=== PATIENT | female | born 1995 | race Two or more races ===

== ENCOUNTER 2022-07-29 06:44 | Emergency (ER) | payer MEDICAID ==
[~2022-07-29] VITALS: Ht 160 cm; Wt 111.3 kg
[2022-07-29 07:41] VITALS: BP 155/79
[2022-07-29 07:47] LABS: Urine Bacteria NONE SEEN /hpf (None Seen); Urine Blood TRACE /uL (Negative); Urine Specific Gravity 1.024 (1.001-1.035); Urine WBC 4 /hpf (0 - 5)
[2022-07-29 07:52] LABS: Basophils # (auto) 0 10 ^3/uL (0-0.2); Basophils % (auto) 0.3 % (0.0-2.0); Eosinophils # (auto) 0.3 10 ^3/uL (0-0.8); Eosinophils % (auto) 3.1 % (0.0-7.0); Hematocrit 43.6 % (36.0-46.0); Hemoglobin 14.4 g/dL (12.2-16.2); Lymphocytes % (auto) 27.5 % (10.0-50.0); Mean Corpuscular Hemoglobin 28.1 pg (28.0-32.0); Mean Corpuscular Hgb Conc. 33.1 g/dL (32.0-36.0); Mean Corpuscular Volume 84.7 fL (80.0-100.0); Monocytes # (auto) 0.5 10 ^3/uL (0-1.3); Monocytes % (auto) 4.4 % (0.0-12.0); Neutrophils # (auto) 7.1 10 ^3/uL (1.6-8.6); Neutrophils % (auto) 64.7 % (37.0-80.0); Nucleated Red Blood Cells % 0.4 %; Red Blood Cells 5.15 10^6/uL (4.0-5.20); Red Cell Distribution Width 14.6 % (11.8-14.3); White Blood Cell 11.1 10^3/uL (4.4-10.8)
[2022-07-29] MEDS ORDERED: KETOROLAC TROMETH 60MG/2ML VIAL IM ONE (08:00)
[2022-07-29 08:06] LABS: Alcohol, Urine < 3.0 mg/dL (0-10); Amphetamine Screen, Urine NEGATIVE (NEGATIVE); Barbiturate Scree,Urine NEGATIVE (NEGATIVE); Benzodiazephine Screen, Urine NEGATIVE (NEGATIVE); Cannabinoid Screen, Urine POSITIVE (NEGATIVE); Cocaine Screen, Urine NEGATIVE (NEGATIVE); Opiate Scree,Urine NEGATIVE (NEGATIVE); Phencyclidine Screen, Urine NEGATIVE (NEGATIVE)
[2022-07-29 08:10] LABS: Albumin 3.7 g/dL (3.4-5.0); BUN/Creatinine Ratio 30.9; Calcium 8.8 mg/dL (8.5-10.1); Potassium 3.7 mmol/L (3.5-5.1)
[2022-07-29 08:13] LABS: Bilirubin, Total 0.2 mg/dL (0.2-1.0); Total Protein 8.3 g/dL (6.4-8.2)
[2022-07-29] MEDS ORDERED: IBUP800T27 PO (09:04)
[2022-07-29] MEDS ORDERED: BACDST PO (09:04)
== END 2022-07-29 09:11 | disposition home or self-care (01) ==
LOC: ER 06:44
DX: K80.20 Calculus of gallbladder without cholecystitis without obstruction (principal); K76.0 Fatty (change of) liver, not elsewhere classified; N39.0 Urinary tract infection, site not specified; F17.210 Nicotine dependence, cigarettes, uncomplicated
CPT/HCPCS: 36415; 76705; 80053; 80307; 81001; 82150; 83690; 85025; 96372; 99284; J1885

== ENCOUNTER 2022-09-01 04:18 | Inpatient (IN) | payer MEDICAID ==
[~2022-09-01] VITALS: Ht 160 cm; Wt 107.7 kg
[~2022-09-01 04:18] MED LIST: BACDST PO; IBUP800T27 PO
[2022-09-01 05:04] LABS: Basophils # (auto) 0 10 ^3/uL (0-0.2); Basophils % (auto) 0.3 % (0.0-2.0); Eosinophils # (auto) 0.1 10 ^3/uL (0-0.8); Eosinophils % (auto) 1.1 % (0.0-7.0); Hematocrit 42.8 % (36.0-46.0); Hemoglobin 14.1 g/dL (12.2-16.2); Lymphocytes % (auto) 23.1 % (10.0-50.0); Mean Corpuscular Hemoglobin 28.3 pg (28.0-32.0); Mean Corpuscular Hgb Conc. 32.8 g/dL (32.0-36.0); Mean Corpuscular Volume 86.1 fL (80.0-100.0); Monocytes # (auto) 0.4 10 ^3/uL (0-1.3); Monocytes % (auto) 3.1 % (0.0-12.0); Neutrophils # (auto) 9.4 10 ^3/uL (1.6-8.6); Neutrophils % (auto) 72.4 % (37.0-80.0); Red Blood Cells 4.97 10^6/uL (4.0-5.20); Red Cell Distribution Width 14.2 % (11.8-14.3); White Blood Cell 12.9 10^3/uL (4.4-10.8)
[2022-09-01 05:12] LABS: Urine Bacteria NONE SEEN /hpf (None Seen); Urine Blood Negative /uL (Negative); Urine Mucus FEW (None Seen); Urine Specific Gravity 1.028 (1.001-1.035); Urine WBC 4 /hpf (0 - 5)
[2022-09-01 05:24] LABS: Potassium 3.6 mmol/L (3.5-5.1)
[2022-09-01 05:30] LABS: Albumin 3.5 g/dL (3.4-5.0); Bilirubin, Total 0.6 mg/dL (0.2-1.0); Total Protein 7.8 g/dL (6.4-8.2)
[2022-09-01] MEDS ORDERED: KETOROLAC TROMETH 30 MG/ML 1ML VIAL IM ONE (09:15)
[2022-09-01] MEDS ORDERED: metroNIDAZOLE 500MG/100ML 100 ML IV ONE (13:00)
[2022-09-01] MEDS ORDERED: HYDROcodone-ACET 5/325MG TAB PO ONE (13:00)
[2022-09-01] MEDS ORDERED: cefTRIAXone 1GM/50ML D5W 50 ML IV ONE (13:00)
[2022-09-01] MEDS ORDERED: ONDANSETRON HCL 4 MG/2 ML VIAL IV PRN (16:45)
[2022-09-01 19:05] VITALS: BP 114/73
[2022-09-01 20:00] VITALS: BP 114/73
[2022-09-01 22:00] VITALS: BP 114/73
[2022-09-01] MEDS: SODIUM CHLORIDE 0.9% 1,000 ML IV SCH (22:07)
[2022-09-01] MEDS: metroNIDAZOLE 500MG/100ML 100 ML IV SCH (22:07)
[2022-09-01] MEDS: TAMSULOSIN HYDROCHLORIDE 0.4 MG CAP PO SCH (22:20)
[2022-09-02] MEDS: SODIUM CHLORIDE 0.9% 1,000 ML IV SCH (01:05)
[2022-09-02 05:00] VITALS: BP 106/60
[2022-09-02] MEDS: metroNIDAZOLE 500MG/100ML 100 ML IV SCH ×3 (05:51→21:22)
[2022-09-02 06:39] LABS: Basophils # (auto) 0.1 10 ^3/uL (0-0.2); Basophils % (auto) 0.7 % (0.0-2.0); Eosinophils # (auto) 0.4 10 ^3/uL (0-0.8); Eosinophils % (auto) 6.1 % (0.0-7.0); Hematocrit 42.2 % (36.0-46.0); Hemoglobin 13.8 g/dL (12.2-16.2); Lymphocytes # (auto) 1.6 10 ^3/uL (0.4-5.4); Lymphocytes % (auto) 22.3 % (10.0-50.0); Mean Corpuscular Hemoglobin 28.4 pg (28.0-32.0); Mean Corpuscular Hgb Conc. 32.8 g/dL (32.0-36.0); Mean Corpuscular Volume 86.6 fL (80.0-100.0); Monocytes # (auto) 0.3 10 ^3/uL (0-1.3); Monocytes % (auto) 3.6 % (0.0-12.0); Neutrophils # (auto) 4.8 10 ^3/uL (1.6-8.6); Neutrophils % (auto) 67.3 % (37.0-80.0); Nucleated Red Blood Cells % 0.2 %; Red Blood Cells 4.87 10^6/uL (4.0-5.20); Red Cell Distribution Width 14.1 % (11.8-14.3); White Blood Cell 7.1 10^3/uL (4.4-10.8)
[2022-09-02 06:47] LABS: Chloride 110 mmol/L (98-107); Potassium 3.3 mmol/L (3.5-5.1); Sodium 136 mmol/L (136-145)
[2022-09-02 06:54] LABS: Alanine Aminotransferase 460 U/L (13-56); Albumin 3.1 g/dL (3.4-5.0); Alkaline Phosphatase 171 U/L (45-117); Anion Gap 7 (5-15); Aspartate Aminotransferase 285 U/L (15-37); Bilirubin, Total 2.3 mg/dL (0.2-1.0); Blood Urea Nitrogen 15 mg/dL (7-18); Calcium 8.7 mg/dL (8.5-10.1); Carbon Dioxide 19 mmol/L (21-32); GFR African American 153 mL/min; GFR Non-African American 127 mL/min; Glucose 108 mg/dL (74-106); Total Protein 7.4 g/dL (6.4-8.2)
[2022-09-02 09:00] VITALS: BP 103/69
[2022-09-02 09:50] LABS: Amylase 35 U/L (25-115); Lipase 150 U/L (73-393)
[2022-09-02] MEDS: SOD CHL 0.9%/ KCL 40MEQ 1,000 ML IV SCH ×2 (09:57→18:10)
[2022-09-02] MEDS: cefTRIAXone 1GM/50ML D5W 50 ML IV SCH (09:57)
[2022-09-02] MEDS: PANTOPRAZOLE 40 MG/10 ML VIAL INJ IV SCH (09:58)
[2022-09-02] MEDS: ENOXAPARIN SOD 40 MG/0.4 ML SYRINGE SC SCH (09:58)
[2022-09-02 12:36] VITALS: BP 138/78
[2022-09-02 17:00] VITALS: BP 113/68
[2022-09-02] MEDS: TAMSULOSIN HYDROCHLORIDE 0.4 MG CAP PO SCH (18:11)
[2022-09-02 20:00] VITALS: BP 121/60
[2022-09-02 22:00] VITALS: BP 121/60
[2022-09-03] MEDS: SOD CHL 0.9%/ KCL 40MEQ 1,000 ML IV SCH ×3 (02:10→18:50)
[2022-09-03 05:00] VITALS: BP 117/69
[2022-09-03] MEDS: metroNIDAZOLE 500MG/100ML 100 ML IV SCH ×3 (05:18→23:10)
[2022-09-03 06:06] LABS: Basophils # (auto) 0 10 ^3/uL (0-0.2); Basophils % (auto) 0.6 % (0.0-2.0); Eosinophils # (auto) 0.3 10 ^3/uL (0-0.8); Eosinophils % (auto) 3.9 % (0.0-7.0); Hematocrit 39.8 % (36.0-46.0); Hemoglobin 13.1 g/dL (12.2-16.2); Lymphocytes # (auto) 1.9 10 ^3/uL (0.4-5.4); Lymphocytes % (auto) 25.7 % (10.0-50.0); Mean Corpuscular Hemoglobin 28.5 pg (28.0-32.0); Mean Corpuscular Volume 86.4 fL (80.0-100.0); Monocytes # (auto) 0.3 10 ^3/uL (0-1.3); Monocytes % (auto) 4.8 % (0.0-12.0); Neutrophils # (auto) 4.8 10 ^3/uL (1.6-8.6); Nucleated Red Blood Cells % 0.2 %; Red Cell Distribution Width 14.2 % (11.8-14.3); White Blood Cell 7.3 10^3/uL (4.4-10.8)
[2022-09-03 06:22] LABS: Potassium 3.9 mmol/L (3.5-5.1)
[2022-09-03 06:32] LABS: Albumin 3.3 g/dL (3.4-5.0); BUN/Creatinine Ratio 21.3 (10.0-20.0); Bilirubin, Total 2.5 mg/dL (0.2-1.0); Calcium 9.1 mg/dL (8.5-10.1); Total Protein 7.2 g/dL (6.4-8.2)
[2022-09-03 08:10] VITALS: BP 118/56
[2022-09-03 09:00] VITALS: BP 118/56
[2022-09-03] MEDS: cefTRIAXone 1GM/50ML D5W 50 ML IV SCH (09:31)
[2022-09-03] MEDS: ENOXAPARIN SOD 40 MG/0.4 ML SYRINGE SC SCH (10:34)
[2022-09-03] MEDS: PANTOPRAZOLE 40 MG/10 ML VIAL INJ IV SCH (10:34)
[2022-09-03 13:00] VITALS: BP 127/67
[2022-09-03 17:27] VITALS: BP 114/69
[2022-09-03] MEDS: TAMSULOSIN HYDROCHLORIDE 0.4 MG CAP PO SCH (17:44)
[2022-09-03 22:00] VITALS: BP 120/81
[2022-09-04] VITALS (7 sets, daily range): BP systolic 107–118; BP diastolic 66–75
[2022-09-04 05:46] LABS: Basophils # (auto) 0 10 ^3/uL (0-0.2); Basophils % (auto) 0.3 % (0.0-2.0); Eosinophils # (auto) 0.3 10 ^3/uL (0-0.8); Eosinophils % (auto) 3.1 % (0.0-7.0); Hematocrit 40.3 % (36.0-46.0); Hemoglobin 13.4 g/dL (12.2-16.2); Lymphocytes % (auto) 22.6 % (10.0-50.0); Mean Corpuscular Hemoglobin 28.8 pg (28.0-32.0); Mean Corpuscular Hgb Conc. 33.2 g/dL (32.0-36.0); Mean Corpuscular Volume 86.6 fL (80.0-100.0); Monocytes # (auto) 0.7 10 ^3/uL (0-1.3); Monocytes % (auto) 7.9 % (0.0-12.0); Neutrophils % (auto) 66.1 % (37.0-80.0); Nucleated Red Blood Cells % 0.3 %; Red Blood Cells 4.65 10^6/uL (4.0-5.20); Red Cell Distribution Width 14.1 % (11.8-14.3); White Blood Cell 9.1 10^3/uL (4.4-10.8)
[2022-09-04 06:26] LABS: Calcium 8.9 mg/dL (8.5-10.1); Potassium 4.5 mmol/L (3.5-5.1)
[2022-09-04 06:31] LABS: Albumin 3.1 g/dL (3.4-5.0); BUN/Creatinine Ratio 18.9 (10.0-20.0); Total Protein 6.7 g/dL (6.4-8.2)
[2022-09-04] MEDS: metroNIDAZOLE 500MG/100ML 100 ML IV SCH ×3 (06:39→21:18)
[2022-09-04] MEDS: SOD CHL 0.9%/ KCL 40MEQ 1,000 ML IV SCH ×3 (06:39→19:50)
[2022-09-04] MEDS: cefTRIAXone 1GM/50ML D5W 50 ML IV SCH (08:37)
[2022-09-04] MEDS: MORPHINE SULFATE INJ 2 MG/ml SYRG IV PRN ×2 (09:22→13:27)
[2022-09-04] MEDS: PANTOPRAZOLE 40 MG/10 ML VIAL INJ IV SCH (10:25)
[2022-09-04] MEDS: ENOXAPARIN SOD 40 MG/0.4 ML SYRINGE SC SCH (10:25)
[2022-09-04 12:54] LABS: Albumin 3.1 g/dL (3.4-5.0); Calcium 8.7 mg/dL (8.5-10.1)
[2022-09-04 12:57] LABS: BUN/Creatinine Ratio 13.6 (10.0-20.0); Bilirubin, Total 4.5 mg/dL (0.2-1.0); Total Protein 7.5 g/dL (6.4-8.2)
[2022-09-04] MEDS: HYDROmorphone HCL 2 MG/ML VL/or syr IV PRN ×2 (14:25→21:15)
[2022-09-04] MEDS: TAMSULOSIN HYDROCHLORIDE 0.4 MG CAP PO SCH (18:26)
[2022-09-05] MEDS: SOD CHL 0.9%/ KCL 40MEQ 1,000 ML IV SCH ×2 (01:05→12:48)
[2022-09-05 05:00] VITALS: BP 110/64
[2022-09-05] MEDS: metroNIDAZOLE 500MG/100ML 100 ML IV SCH ×3 (05:49→21:02)
[2022-09-05 06:41] LABS: Basophils # (auto) 0 10 ^3/uL (0-0.2); Basophils % (auto) 0.3 % (0.0-2.0); Eosinophils # (auto) 0.1 10 ^3/uL (0-0.8); Eosinophils % (auto) 1.4 % (0.0-7.0); Hematocrit 40.9 % (36.0-46.0); Hemoglobin 13.5 g/dL (12.2-16.2); Lymphocytes # (auto) 1.9 10 ^3/uL (0.4-5.4); Lymphocytes % (auto) 18.4 % (10.0-50.0); Mean Corpuscular Hemoglobin 28.6 pg (28.0-32.0); Mean Corpuscular Hgb Conc. 33.1 g/dL (32.0-36.0); Mean Corpuscular Volume 86.6 fL (80.0-100.0); Monocytes # (auto) 0.4 10 ^3/uL (0-1.3); Monocytes % (auto) 3.9 % (0.0-12.0); Neutrophils # (auto) 7.9 10 ^3/uL (1.6-8.6); Nucleated Red Blood Cells % 0.1 %; Red Blood Cells 4.72 10^6/uL (4.0-5.20); Red Cell Distribution Width 14.1 % (11.8-14.3); White Blood Cell 10.4 10^3/uL (4.4-10.8)
[2022-09-05 06:49] LABS: Potassium 3.9 mmol/L (3.5-5.1)
[2022-09-05 07:03] LABS: Albumin 3.3 g/dL (3.4-5.0); BUN/Creatinine Ratio 18.4 (10.0-20.0); Total Protein 7.7 g/dL (6.4-8.2)
[2022-09-05 08:00] VITALS: BP 120/64
[2022-09-05] MEDS: cefTRIAXone 1GM/50ML D5W 50 ML IV SCH (08:49)
[2022-09-05 09:05] VITALS: BP 120/64
[2022-09-05] MEDS: ENOXAPARIN SOD 40 MG/0.4 ML SYRINGE SC SCH (10:42)
[2022-09-05] MEDS: PANTOPRAZOLE 40 MG/10 ML VIAL INJ IV SCH (10:42)
[2022-09-05 13:37] LABS: Hepatitis B Core IgM Negative; Hepatitis C Antibody Negative (Negative)
[2022-09-05 13:38] LABS: Hepatitis A Ab IgM Negative
[2022-09-05 14:12] VITALS: BP 126/79
[2022-09-05 17:00] VITALS: BP 136/87
[2022-09-05] MEDS: TAMSULOSIN HYDROCHLORIDE 0.4 MG CAP PO SCH (17:39)
[2022-09-05 21:30] VITALS: BP 137/86
[2022-09-05] MEDS: HYDROmorphone HCL 2 MG/ML VL/or syr IV PRN (22:36)
[2022-09-06] MEDS: SOD CHL 0.9%/ KCL 40MEQ 1,000 ML IV SCH ×4 (02:21→21:50)
[2022-09-06 05:00] VITALS: BP 124/69
[2022-09-06] MEDS: metroNIDAZOLE 500MG/100ML 100 ML IV SCH ×3 (05:02→21:01)
[2022-09-06 08:00] VITALS: BP 116/62
[2022-09-06 08:50] VITALS: BP 116/62
[2022-09-06] MEDS: cefTRIAXone 1GM/50ML D5W 50 ML IV SCH (10:33)
[2022-09-06] MEDS: PANTOPRAZOLE 40 MG/10 ML VIAL INJ IV SCH (10:33)
[2022-09-06] MEDS: ENOXAPARIN SOD 40 MG/0.4 ML SYRINGE SC SCH (10:33)
[2022-09-06 13:17] VITALS: BP 129/83
[2022-09-06 13:44] LABS: INR 1.01 (0.9-1.15); Partial Thromboplastin Time 32.5 sec (24.6-33.4)
[2022-09-06 14:06] LABS: Potassium 4.4 mmol/L (3.5-5.1)
[2022-09-06 14:14] LABS: Albumin 3.6 g/dL (3.4-5.0); BUN/Creatinine Ratio 16.4 (10.0-20.0); Bilirubin, Total 1.2 mg/dL (0.2-1.0); Calcium 9.4 mg/dL (8.5-10.1)
[2022-09-06 17:00] VITALS: BP 126/83
[2022-09-06] MEDS: TAMSULOSIN HYDROCHLORIDE 0.4 MG CAP PO SCH (18:00)
[2022-09-06 22:00] VITALS: BP 135/74
[2022-09-07 05:00] VITALS: BP 111/65
[2022-09-07] MEDS: metroNIDAZOLE 500MG/100ML 100 ML IV SCH ×3 (05:11→22:33)
[2022-09-07] MEDS: SOD CHL 0.9%/ KCL 40MEQ 1,000 ML IV SCH ×3 (05:12→22:37)
[2022-09-07 08:00] VITALS: BP 108/71
[2022-09-07 08:44] LABS: Albumin 3.6 g/dL (3.4-5.0); Bilirubin, Direct 0.4 mg/dL (0-0.2)
[2022-09-07 08:47] LABS: Total Protein 8.1 g/dL (6.4-8.2)
[2022-09-07] MEDS ORDERED: SUCCINYLCHOLINE CHLORIDE 20 MG/ML 10ML VIAL IV ONE (08:53)
[2022-09-07] MEDS ORDERED: ROCURONIUM 10MG/ML 10ML VIAL IV ONE (08:53)
[2022-09-07 09:00] VITALS: BP 108/71
[2022-09-07] MEDS: ENOXAPARIN SOD 40 MG/0.4 ML SYRINGE SC SCH (09:10)
[2022-09-07] MEDS: PANTOPRAZOLE 40 MG/10 ML VIAL INJ IV SCH (09:10)
[2022-09-07] MEDS: cefTRIAXone 1GM/50ML D5W 50 ML IV SCH (09:10)
[2022-09-07] MEDS ORDERED: LIDOCAINE W/ EPINEPHRINE 1% 20ML VIAL ONE (09:13)
[2022-09-07] MEDS ORDERED: BUPIVACAINE 0.25% INJ 50ML VIAL ONE (09:13)
[2022-09-07] MEDS ORDERED: HYDROmorphone HCL 2 MG/ML VL/or syr IV PRN ×2 (10:15)
[2022-09-07] MEDS ORDERED: METOCLOPRAMIDE HCL 5MG/ml INJ 2ml VIAL IV PRN (10:15)
[2022-09-07] MEDS ORDERED: MORPHINE SULFATE INJ 2 MG/ml SYRG IV PRN (10:15)
[2022-09-07] MEDS ORDERED: fentaNYL CITRATE 100 MCG/2 ML VL ONE (10:16)
[2022-09-07] MEDS ORDERED: MEPERIDINE HCL (25 MG/ML) 1ML VIAL ONE (10:16)
[2022-09-07] MEDS ORDERED: MIDAZOLAM HCL 2MG/2ML 2ml VIAL (1mg/ml) ONE (10:16)
[2022-09-07] MEDS ORDERED: SODIUM CHLORIDE LOCK 10 ML ONE (10:17)
[2022-09-07] MEDS ORDERED: GLYCOPYRROLATE 0.2 MG/ML 1ML VIAL ONE (10:17)
[2022-09-07] MEDS ORDERED: DexAMETHasone SOD PHOS 10MG/1ML VIAL INJ ONE (10:17)
[2022-09-07] MEDS ORDERED: PROPOFOL 10 MG/ML 20 ML IV ONE (10:17)
[2022-09-07] MEDS ORDERED: NEOSTIGMINE 1 MG/ML INJ (10mg/10ML VIAL) ONE (10:17)
[2022-09-07] MEDS ORDERED: ONDANSETRON HCL 4 MG/2 ML VIAL ONE (10:17)
[2022-09-07 16:54] VITALS: BP 117/72
[2022-09-07] MEDS: HYDROmorphone HCL 2 MG/ML VL/or syr IV PRN ×2 (17:15→22:27)
[2022-09-07] MEDS: TAMSULOSIN HYDROCHLORIDE 0.4 MG CAP PO SCH (17:39)
[2022-09-07 22:00] VITALS: BP 129/74
[2022-09-07 22:26] LABS: BUN/Creatinine Ratio 16.7 (10.0-20.0); Calcium 9.6 mg/dL (8.5-10.1); Potassium 4.5 mmol/L (3.5-5.1)
[2022-09-08 05:00] VITALS: BP_SYST 105; BP_SYST 107; BP_DIAS 42; BP_DIAS 75
[2022-09-08] MEDS: HYDROmorphone HCL 2 MG/ML VL/or syr IV PRN (05:29)
[2022-09-08] MEDS: metroNIDAZOLE 500MG/100ML 100 ML IV SCH ×2 (05:30→12:51)
[2022-09-08 05:43] LABS: Basophils # (auto) 0 10 ^3/uL (0-0.2); Basophils % (auto) 0.4 % (0.0-2.0); Eosinophils # (auto) 0.2 10 ^3/uL (0-0.8); Eosinophils % (auto) 1.7 % (0.0-7.0); Hematocrit 42.5 % (36.0-46.0); Hemoglobin 14.3 g/dL (12.2-16.2); Lymphocytes # (auto) 1.7 10 ^3/uL (0.4-5.4); Lymphocytes % (auto) 18.6 % (10.0-50.0); Mean Corpuscular Hemoglobin 29.2 pg (28.0-32.0); Mean Corpuscular Hgb Conc. 33.8 g/dL (32.0-36.0); Mean Corpuscular Volume 86.5 fL (80.0-100.0); Monocytes # (auto) 0.5 10 ^3/uL (0-1.3); Monocytes % (auto) 5.9 % (0.0-12.0); Neutrophils # (auto) 6.7 10 ^3/uL (1.6-8.6); Neutrophils % (auto) 73.4 % (37.0-80.0); Nucleated Red Blood Cells % 0.1 %; Red Blood Cells 4.91 10^6/uL (4.0-5.20); Red Cell Distribution Width 13.7 % (11.8-14.3); White Blood Cell 9.2 10^3/uL (4.4-10.8)
[2022-09-08 05:59] LABS: Potassium 3.8 mmol/L (3.5-5.1)
[2022-09-08 06:07] LABS: Albumin 3.7 g/dL (3.4-5.0); BUN/Creatinine Ratio 14.1 (10.0-20.0); Bilirubin, Total 1.2 mg/dL (0.2-1.0); Calcium 9.3 mg/dL (8.5-10.1); Total Protein 8.5 g/dL (6.4-8.2)
[2022-09-08] MEDS: SOD CHL 0.9%/ KCL 40MEQ 1,000 ML IV SCH ×2 (07:10→15:15)
[2022-09-08 09:00] VITALS: BP 121/72
[2022-09-08] MEDS: cefTRIAXone 1GM/50ML D5W 50 ML IV SCH (09:00)
[2022-09-08] MEDS: PANTOPRAZOLE 40 MG/10 ML VIAL INJ IV SCH (09:26)
[2022-09-08] MEDS: ENOXAPARIN SOD 40 MG/0.4 ML SYRINGE SC SCH (09:26)
[2022-09-08] MEDS ORDERED: CEPH-510 PO (12:37)
[2022-09-08 13:00] VITALS: BP 124/84
== END 2022-09-08 15:20 | disposition home or self-care (01) | DRG 710 ==
LOC: ER 04:18 → OVERFLOW 16:49 → WEST WING 20:19
PROVIDERS: ADMIT Nurse Practitioner Family; ATTEND Internal Medicine
PROC: 0FT44ZZ Resection of Gallbladder, Percutaneous Endoscopic Approach (ICD-10-PCS; principal; 2022-09-07 10:19)
DX: A41.9 Sepsis, unspecified organism (principal); K80.00 Calculus of gallbladder with acute cholecystitis without obstruction; E87.1 Hypo-osmolality and hyponatremia; J45.909 Unspecified asthma, uncomplicated; E86.0 Dehydration; N20.0 Calculus of kidney; E66.01 Morbid (severe) obesity due to excess calories; Z68.41 Body mass index [BMI] 40.0-44.9, adult; F17.210 Nicotine dependence, cigarettes, uncomplicated; R73.03 Prediabetes; E87.6 Hypokalemia
CPT/HCPCS: 36415; 74176; 74181; 76705; 80048; 80053; 80074; 80076; 81001; 82150; 83036; 83690; 84702; 85025; 85610; 85730; 86850; 86900; 86901; 87081; 96365; 96367; 96372; C9113; G0378; J0330; J0696; J1100; J1885; J2250; J2405; J2704; J3490